=== PATIENT | female | born 1935 | race Caucasian/White ===

== ENCOUNTER → 2016-11-22 | Day surgery (SDC) | payer MEDICARE ==
[~2016-11-22] MED LIST: ALLE10TA5 PO; ALPR.25 PO; APIX5 PO; APIX5TAB PO; ATEN-100 PO; BUPIVACAINE/EPINEPHRINE 0.5% PF 30 ML VIAL ONE; CEFU1TAB20 PO; DEXI30CA2 PO; DIPH25 PO; GABA100C4 PO; LACTATED RINGER'S 1000 ML INJ 1,000 ML ONE; LIDOCAINE 1%/EPINEPHrine 1:100,000 SOLN 20 ML VIAL ONE; MUCU400T2 PO; NEOMYCIN/POLYMYXIN/BACITRACIN OINT 15 GM TUBE ONE; ONDANSETRON HCL 4 MG/2 ML VIAL IV PUSH ONE; ONETAB3 PO; PHEN25IN PO; PRED10 PO; PROPOFOL 200 MG/20 ML AMP IV ONE; RESP: ALBUTEROL 2.5 MG/3 ML NEB (SCH) ONE; TRAZ50TA4 PO; ULTR50TA PO; VITA400C58 PO; ZOFR4TAB3 SL
[2016-11-22 09:06] LABS: INTERNATIONAL NORMALIZED RATIO 1.2 RATIO; PROTHROMBIN TIME - PATIENT 13.4 SEC (9.8-11.6)
--- NOTE | 2016-11-22 13:22 | TN ---
cc: BASHIR HINOJOSA KATHLEEN B. M.D. DATE OF SURGERY 11/22/2016 PREOPERATIVE DIAGNOSIS Previous left-sided breast cancer status post mastectomy with radiation therapy with nodularity along the chest wall suspicious for possible recurrence. POSTOPERATIVE DIAGNOSIS Previous left-sided breast cancer status post mastectomy with radiation therapy with nodularity along the chest wall suspicious for possible recurrence, pending permanent section. PROCEDURE PERFORMED Excision of four lumps in the chest wall. SURGEON Dr. Hinojosa ANESTHESIA TIVA with LMA. INDICATIONS This a pleasant lady who was treated for left breast cancer years ago. She has these growing nodules along her chest wall where she has a muscular flap after a previous biopsy and healing problems from the radiation. Plans were made for excision of these hard nodules. PROCEDURE The patient taken to the operating room. After anesthesia, the area was prepped with Betadine. She was given preoperative antibiotics. We made an elliptical incision over the medial aspect of one of the nodules that appears to be attached to the rib which is carefully teased away with sharp dissection using a scalpel to remove this nodularity in the skin overlying it. We were able then to make a flap from the inferior skin from the abdominal wall to bring this up to cover the area. The elliptical incision made is 2-1/2 cm x 1 cm. This is closed then with an interrupted nylon suture. The medial and lateral edge of the chest wall is just inferior to the latissimus dorsi flap that had been previously placed many years ago. We made an elliptical incision measuring 5 cm x 3 cm to incorporate the nodularity along this area, very firm, one of them is attached to the rib as well and this is teased off using sharp dissection. We then bluntly dissect underneath the muscle flap to rotate this out laterally and inferior to close the defect with a deep suture of 3-0 Vicryl and skin with 3-0 nylon. Sterile bandage applied. The patient tolerated the procedure well and had no immediate postop complications. MD CE Em/ESPINOZA /1:08 PM /1:18 PM
== END | disposition home or self-care (01) ==
LOC: ESDC 07:56
PROVIDERS: ATTEND Surgery
DX: L90.5 Scar conditions and fibrosis of skin (principal); R22.2 Localized swelling, mass and lump, trunk; Z85.3 Personal history of malignant neoplasm of breast; Z90.12 Acquired absence of left breast and nipple; Z79.01 Long term (current) use of anticoagulants; Z79.899 Other long term (current) drug therapy
CPT/HCPCS: 00400; 14000; 36415; 85610; 88305; J2405; J3010; J7120; J7613

== ENCOUNTER 2017-05-08 15:27 | Emergency (ER) | payer MEDICARE ==
[~2017-05-08] VITALS: Ht 167.6 cm; Wt 72.4 kg
[~2017-05-08 15:27] MED LIST changes: -BUPIVACAINE/EPINEPHRINE 0.5% PF 30 ML VIAL ONE; -LACTATED RINGER'S 1000 ML INJ 1,000 ML ONE; -LIDOCAINE 1%/EPINEPHrine 1:100,000 SOLN 20 ML VIAL ONE; -NEOMYCIN/POLYMYXIN/BACITRACIN OINT 15 GM TUBE ONE; -ONDANSETRON HCL 4 MG/2 ML VIAL IV PUSH ONE; -PROPOFOL 200 MG/20 ML AMP IV ONE; -RESP: ALBUTEROL 2.5 MG/3 ML NEB (SCH) ONE
[2017-05-08 15:49] VITALS: BP 169/76; PULSE 81; RESP 18; TEMP 97.6; O2SAT 97
--- NOTE | 2017-05-08 16:09 | PD ---
HPI Chief Complaint: Fall Time Seen by Provider: 16:00 Travel History International Travel<30 days: No Contact w/Intl Traveler<30days: No Traveled to known affect area: No History of Present Illness HPI 81-year-old female presents status post trip and fall where she hit the back of her head on pavement. She did not lose consciousness. She states she is on Coumadin for a pulmonary embolus. She states that her INR yesterday was about 3. She states that she does not hurt anywhere other than the back of her head. She fell from standing. She states she has a bump to the area. PFSH Past Medical History Hx Anticoagulant Therapy: Yes (COUMADIN) ADD: Yes Arthritis: No Asthma: Yes Autoimmune Disease: No Anxiety: Yes Depression: Yes Heart Rhythm Problems: Yes (HX MURMUR) Cancer: Yes (lt breast) Cardiovascular Problems: Yes High Cholesterol: No Chemotherapy: Yes Chest Pain: No Congestive Heart Failure: No COPD: No Cerebrovascular Accident: Yes (STROKE SYMPTOMS 12/04) Diabetes: No Diminished Hearing: No Endocrine: No Gastrointestinal Disorders: Yes GERD: Yes Genitourinary: Yes Hypertension: Yes Immune Disorder: No Kidney Stones: No Musculoskeletal: No Neurologic: Yes (ADD, 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) Psychiatric: Yes Reproductive: No Respiratory: Yes Migraines: Yes (OCULAR MIGRAINES) Radiation Therapy: Yes Renal Failure: No Sleep Apnea: No Thyroid Disease: No ?: Not Menopausal: Yes Past Surgical History Abdominal Surgery: Yes Appendectomy: Yes Endocrine Surgery: Yes (PARTICIAL PARA THYROIDECTOMY) Gynecologic Surgery: Yes (hysterectomy) Hysterectomy: Yes Mastectomy: Yes (lt breast) Thoracic Surgery: Yes (L RADICAL MASTECOMY 1971, 13 NODULE SURGERIES) Other Surgery: Yes (LEFT RADICAL MASTECTOMY; PARATHYROID) Social History Alcohol Use: Yes (OCC) Tobacco Use: No Substance Use: No Allergies-Medications (Allergen,Severity, Reaction): Coded Allergies: bacitracin (Unverified Allergy, Severe, RASH, 05/08/17) codeine (Unverified Allergy, Severe, Psychosis, 05/08/17) gramicidin D (Unverified Allergy, Severe, RASH, 05/08/17) modafinil (Unverified Allergy, Severe, 05/08/17) neomycin (Unverified Allergy, Severe, RASH, 05/08/17) polymyxin B (Unverified Allergy, Severe, RASH, 05/08/17) Uncoded Allergies: paper tape (Adverse Reaction, Intermediate, skin tears, 12/04/13) Reported Meds & Prescriptions Reported Meds & Active Scripts Active Reported Trazodone (Trazodone HCl) 50 Mg Tab 50 Mg PO HS Multiple Vitamin 1 Tab 1 Tab PO DAILY Guaifenesin 200 Mg Tablet 200 Mg PO DAILY Gabapentin 100 Mg Cap 100 Mg PO DAILY Omeprazole 20 Mg Tab 20 Mg PO DAILY Vitamin D3 (Cholecalciferol) 400 Unit Tab 400 Units PO DAILY Eliquis (Apixaban) 2.5 Mg Tab 3 Mg PO DAILY Xanax (Alprazolam) 0.25 Mg Tab 0.25 Mg PO Q12HR PRN Review of Systems Except as stated in HPI: all other systems reviewed are Neg Physical Exam Narrative General: 81 y/o patient in no apparent distress Skin: trauma noted to occipital area with hematoma Eyes: Pupils equal, eomi NECK: no pain with palpation, nexus criteria negative Cardiovascular: Regular rate and rhythm Respiratory: Normal respiratory effort noted, clear to auscultation bilaterally Abdomen: soft, nontender, nondistended Back: No step-offs, midline spine nontender with palpation Extremities: No pain over main joints Neuro: awake, alert, sensation and motor grossly intact Data Data Last Documented VS Vital Signs Date Time Temp Pulse Resp B/P (MAP) Pulse Ox O2 Delivery O2 Flow Rate FiO2 05/08/17 17:51 79 18 155/65 (95) 98 05/08/17 16:54 Room Air 05/08/17 15:49 97.6 Orders Orders Basic Metabolic Panel (Bmp) (05/08/17 16:03) Complete Blood Count With Diff (05/08/17 16:03) Prothrombin Time / Inr (Pt) (05/08/17 16:03) Ct Brain W/O Iv Contrast(Rout) (05/08/17 16:03) Iv Access Insert/Monitor (05/08/17 16:03) Ecg Monitoring (05/08/17 16:03) Oximetry (05/08/17 16:03) Sodium Chloride 0.9% Flush (Ns Flush) (05/08/17 16:15) Ed Discharge Order (05/08/17 17:17) Labs Laboratory Tests Test 05/08/17 16:39 White Blood Count 8.9 TH/MM3 Red Blood Count 4.73 MIL/MM3 Hemoglobin 12.8 GM/DL Hematocrit 39.6 % Mean Corpuscular Volume 83.6 FL Mean Corpuscular Hemoglobin 26.9 PG Mean Corpuscular Hemoglobin Concent 32.2 % Red Cell Distribution Width 12.8 % Platelet Count 242 TH/MM3 Mean Platelet Volume 7.8 FL Neutrophils (%) (Auto) 62.9 % Lymphocytes (%) (Auto) 26.9 % Monocytes (%) (Auto) 6.8 % Eosinophils (%) (Auto) 2.5 % Basophils (%) (Auto) 0.9 % Neutrophils # (Auto) 5.6 TH/MM3 Lymphocytes # (Auto) 2.4 TH/MM3 Monocytes # (Auto) 0.6 TH/MM3 Eosinophils # (Auto) 0.2 TH/MM3 Basophils # (Auto) 0.1 TH/MM3 CBC Comment DIFF FINAL Differential Comment Prothrombin Time 12.5 SEC Prothromb Time International Ratio 1.1 RATIO Blood Urea Nitrogen 9 MG/DL Creatinine 0.82 MG/DL Random Glucose 115 MG/DL Calcium Level 9.6 MG/DL Sodium Level 140 MEQ/L Potassium Level 3.6 MEQ/L Chloride Level 105 MEQ/L Carbon Dioxide Level 25.3 MEQ/L Anion Gap 10 MEQ/L Estimat Glomerular Filtration Rate 67 ML/MIN MDM Medical Decision Making Medical Screen Exam Complete: Yes Emergency Medical Condition: Yes Medical Record Reviewed: Yes (past history confirmed) Interpretation(s) CBC & BMP Diagram 05/08/17 16:39 Calcium Level 9.6 Differential Diagnosis Intracranial bleed, scalp hematoma, supratherapeutic INR Narrative Course Will check lab work, CT brain and reevaluate ed workup no acute, Patient denies any new complaints, all questions answered. Patient knows that follow up is incumbent on them and to return to the emergency room immediately if new or worsening symptoms develop. Patient given strict return precautions, vitals reviewed and are normal, agrees to further workup as an outpatient. Diagnosis Primary Impression: Fall Qualified Codes: W19.XXXA - Unspecified fall, initial encounter Additional Impression: Subtherapeutic international normalized ratio (INR) Patient Instructions: General Instructions Additional Instructions: return as needed, call who manages your INR level tomorrow morning for adjustment (today was 1.1), follow with primary for recheck this week and repeat inr, tylenol as needed Med/Other Pt SpecificInfo: No Change to Meds Disposition: 01 DISCHARGE HOME Condition: Stable Mirna Amado MD May 08, 2017 16:09
[2017-05-08] MEDS ORDERED: SODIUM CHLORIDE 0.9% FLUSH 10 ML FLUSH IVF PRN (16:15)
[2017-05-08 16:47] LABS: AUTOMATED NEUTROPHIL # 5.6 TH/MM3 (1.8-7.7); BASOPHIL # 0.1 TH/MM3 (0-0.2); BASOPHIL % 0.9 % (0.0-2.0); EOSINOPHIL # 0.2 TH/MM3 (0-0.4); EOSINOPHIL % 2.5 % (0.0-4.0); HEMATOCRIT 39.6 % (35.0-46.0); HEMO FLAGS DIFF FINAL; LYMPH % 26.9 % (9.0-44.0); LYMPHOCYTE # 2.4 TH/MM3 (1.0-4.8); MEAN CELL VOLUME 83.6 FL (80.0-100.0); MEAN CORPUSCULAR HEMOGLOBIN 26.9 PG (27.0-34.0); MEAN CORPUSCULAR HGB CONC 32.2 % (32.0-36.0); MONO % 6.8 % (0.0-8.0); NEUT % 62.9 % (16.0-70.0); PLATELET COUNT 242 TH/MM3 (150-450); RED BLOOD COUNT 4.73 MIL/MM3 (4.00-5.30); RED CELL DISTRIBUTION WIDTH 12.8 % (11.6-17.2); WHITE BLOOD COUNT 8.9 TH/MM3 (4.0-11.0)
[2017-05-08 16:52] VITALS: O2SAT 98
[2017-05-08 17:07] LABS: POTASSIUM 3.6 MEQ/L (3.5-5.1)
[2017-05-08 17:10] LABS: BICARBONATE 25.3 MEQ/L (21.0-32.0); INTERNATIONAL NORMALIZED RATIO 1.1 RATIO; PROTHROMBIN TIME - PATIENT 12.5 SEC (9.8-11.6)
--- NOTE | 2017-05-08 17:15 | RADRPT ---
EXAM DATE/TIME: 05/08/2017 16:54 [facility] COMPARISON: No previous studies available for comparison. INDICATIONS : Fell and hit back of head. RADIATION DOSE: 59.86 CTDIvol (mGy) MEDICAL HISTORY : Cerebrovascular disease. Hypertension. Carcinoma, breast.Anticoagulant therapy. SURGICAL HISTORY : Hysterectomy. Mastectomy, left. ENCOUNTER: Initial ACUITY: 1 day PAIN SCALE: 3/10 LOCATION: cranial TECHNIQUE: Multiple contiguous axial images were obtained of the head. Using automated exposure control and adj ustment of the mA and/or kV according to patient size, radiation dose was kept as low as reasonably a chievable to obtain optimal diagnostic quality images. DICOM format image data is available [facility] for review and comparison. FINDINGS: CEREBRUM: There is mild generalized atrophy. Ventricles are normal in size. There is severe periventricular whi te matter low-attenuation with well-defined low density in the left basal ganglia measuring 7 mm. No midline shift, mass lesion, hemorrhage or acute infarction. No extra-axial fluid collections are se en. POSTERIOR FOSSA: The cerebellum and brainstem demonstrate no acute finding. The 4th ventricle is midline. The cerebe llopontine angle is unremarkable. EXTRACRANIAL: Visualized sinuses are clear. SKULL: The calvaria is intact. No evidence of skull fracture. CONCLUSION: 1. No acute intracranial abnormality is identified. 2. 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 An old lacune is present in the left basal ganglia. Johnie Meléndez MD on May 08, 2017 at 17:11 Board Certified Radiologist. This report was verified electronically.
[2017-05-08] MEDS ORDERED: GUAI200T4 PO (17:26)
[2017-05-08] MEDS ORDERED: ALPR.25 PO (17:26)
[2017-05-08] MEDS ORDERED: APIX2.5T PO (17:26)
[2017-05-08] MEDS ORDERED: VITD400 PO (17:26)
[2017-05-08] MEDS ORDERED: OMEP20TA93 PO (17:26)
[2017-05-08] MEDS ORDERED: MULTTAB67 PO (17:26)
[2017-05-08] MEDS ORDERED: GABA100C4 PO (17:26)
[2017-05-08] MEDS ORDERED: TRAZ50TA12 PO (17:26)
[2017-05-08 17:51] VITALS: BP 155/65
== END 2017-05-08 17:58 | disposition home or self-care (01) ==
LOC: PHED 15:27
DX: S00.03XA Contusion of scalp, initial encounter (principal); R79.1 Abnormal coagulation profile; W01.0XXA Fall on same level from slipping, tripping and stumbling without subsequent striking against object, initial encounter; Z79.01 Long term (current) use of anticoagulants
CPT/HCPCS: 70450; 80048; 85025; 85610; 99284